=== PATIENT | male | born 1965 | race Caucasian/White ===

== ENCOUNTER 2016-12-02 07:07 | Emergency (ER) | payer OTHER ==
[~2016-12-02] VITALS: Ht 182.9 cm; Wt 98.2 kg
[~2016-12-02 07:07] MED LIST: ASPIR-LOW81 MG PO; COREG3.125 M1 PO; COZAAR25 MG PO; CRESTOR10 MG; EFFIENT10 MG; LOSARTAN POTASS25 MG; MOBIC7.5 MG PO; PRAVASTATIN SOD40 MG PO
[2016-12-02 08:42] LABS: EOSINOPHIL (%) 2.9 % (0-5); EOSINOPHIL COUNT 0.2 K/uL (0-0.3); IMMATURE GRANULOCYTE (%) 0.3 % (0.0-0.7); INSTRUMENT ABS NEUTROPHIL CT 5.4 K/uL; LYMPHOCYTE COUNT 1.2 K/uL (1.0-2.8); MCH 30.8 PG (29.0-34.0); MCV 90.7 FL (86-99); MEAN PLAT.VOLUME 11.3 uM^3 (9.0-12.4); MONOCYTE (%) 11.5 % (3-12); MONOCYTE COUNT 0.9 K/uL (0-0.8); NEUTROPHIL (%) 69.3 % (45-76); NEUTROPHIL COUNT 5.4 K/uL (1.8-6.4); PLATELET COUNT 165 K/uL (156-360); RBC DIS.WIDTH-CV 12.1 % (11.8-14.6); RBC DIS.WIDTH-SD 39.9 % (39-53); RED BLOOD COUNT 4.96 M/uL (4.00-5.50); WHITE BLOOD COUNT 7.8 K/uL (4.1-10.2)
[2016-12-02 08:54] LABS: CHLORIDE 109 mEq/L (99-109); SODIUM 142 mEq/L (136-147)
[2016-12-02 08:55] LABS: GLUCOSE 102 mg/dL (70-99)
[2016-12-02 08:57] LABS: ANION GAP 9 MEQ/L (2-14)
[2016-12-02 08:59] LABS: GFR ESTIMATE (CALCULATED) > 59 mL/min/
[2016-12-02 09:00] LABS: UREA NITROGEN (BUN) 15 mg/dL (9-23)
[2016-12-02] MEDS ORDERED: PHENERGAN-CODE120 ML PO ×2 (09:52→09:54)
[2016-12-02 09:56] VITALS: BP 134/85
== END 2016-12-02 10:02 | disposition home or self-care (01) ==
LOC: EME 07:07
PROVIDERS: Emergency Medicine
DX: J20.9 Acute bronchitis, unspecified (principal); J06.9 Acute upper respiratory infection, unspecified; R04.0 Epistaxis; Z88.8 Allergy status to other drugs, medicaments and biological substances; Z87.891 Personal history of nicotine dependence; Z79.82 Long term (current) use of aspirin; Z95.5 Presence of coronary angioplasty implant and graft; I25.10 Atherosclerotic heart disease of native coronary artery without angina pectoris; I25.2 Old myocardial infarction; Z87.01 Personal history of pneumonia (recurrent)
CPT/HCPCS: 71020; 80048; 85025; 93005; 99281; 99284